=== PATIENT | female | born 1985 | race Caucasian/White ===

== ENCOUNTER 2024-11-02 12:44 | Emergency (ER) | payer BC ==
[~2024-11-02] VITALS: Ht 172.7 cm; Wt 62.6 kg
[2024-11-02] MEDS ORDERED: MINOXIDIL2.5 MG/TAB PO (12:58)
[2024-11-02] MEDS ORDERED: Ondansetron 4 MG/2 ML VIAL IV ONE (13:00)
[2024-11-02] MEDS ORDERED: Morphine 4 MG/ML VIAL IV ONE (13:15)
[2024-11-02 13:23] LABS: BASO # 0.02 K/mm3 (0.02-0.10); EOS # 0.06 K/mm3 (0.04-0.40); EOS % 0.7 % (1.0-5.0); HEMOGLOBIN 12.6 g/dL (12.5-16.0); LYMPH# 1.99 K/mm3 (1.50-4.00); MEAN CELL VOLUME 91 fl (78-100); MEAN CORPUSCULAR HEMOGLOBIN 29 pg (27-31); MEAN CORPUSCULAR HGB CONC 32 g/dL (33-37); MEAN PLATELET VOLUME 9.5 fl (7.4-10.4); MONO # 0.57 K/mm3 (0.20-0.80); NEU # 5.41 K/mm3 (1.40-6.50); PLATELET COUNT 264 K/mm3 (130-400); RED CELL DISTRIBUTION WIDTH 13.3 % (11.5-14.5); WHITE BLOOD COUNT 8.1 K/mm3 (4.8-10.8)
[2024-11-02] MEDS ORDERED: Iohexol 300 - 100 ML VIAL IV ONE (13:25)
[2024-11-02] MEDS ORDERED: NS 100 ML IV SCH (13:25)
[2024-11-02 13:30] LABS: ALBUMIN 4.1 g/dL (3.5-5.0)
[2024-11-02 13:33] LABS: TOTAL PROTEIN 6.8 g/dL (6.4-8.3)
[2024-11-02 13:35] LABS: TOTAL BILIRUBIN 0.6 mg/dL (0.2-1.2)
[2024-11-02] MEDS ORDERED: ZOFRAN ODT4 MG PO (14:29)
[2024-11-02] MEDS ORDERED: KETOROLAC10 MG PO (14:48)
[2024-11-02 14:50] VITALS: BP 122/72
== END 2024-11-02 15:19 | disposition home or self-care (01) ==
LOC: ED 12:44
PROVIDERS: Family Medicine
DX: R10.819 Abdominal tenderness, unspecified site (principal); R11.2 Nausea with vomiting, unspecified; Z87.42 Personal history of other diseases of the female genital tract
CPT/HCPCS: J2270; J2405; J7120; Q9967